=== PATIENT | female | born 1960 | race African-American/Black ===

== ENCOUNTER 2017-09-08 08:39 | Emergency (ER) | payer SELFPAY ==
[~2017-09-08] VITALS: Ht 152.4 cm; Wt 63.5 kg
[2017-09-08 08:51] VITALS: BP 170/94
[2017-09-08] MEDS ORDERED: methylPREDNISolone SOD SUCC 125 MG/2 ML VL IM ONE (10:00)
[2017-09-08] MEDS ORDERED: diphenhdrAMINE HCL 50 MG/1 ML VL IM ONE (10:00)
== END 2017-09-08 10:43 | disposition home or self-care (01) ==
LOC: ER 08:39
DX: L23.9 Allergic contact dermatitis, unspecified cause (principal); I10 Essential (primary) hypertension; Z88.1 Allergy status to other antibiotic agents
CPT/HCPCS: 96372; 99284; J1200; J2930

== ENCOUNTER 2019-02-21 17:38 | Inpatient (IN) | payer SELFPAY ==
[~2019-02-21] VITALS: Ht 152.4 cm; Wt 67.1 kg
[2019-02-21] MEDS ORDERED: SODIUM CHLORIDE 0.9% 500 ML IV ONE (19:44)
[2019-02-21] MEDS ORDERED: ALBUTEROL SULF 2.5 MG/0.5ML(0.5%) NEB SOLN HHN ONE (19:45)
[2019-02-21] MEDS ORDERED: IPRATROPIUM BROM 0.5 MG/2.5ML INH SOL HHN ONE (19:45)
[2019-02-21] MEDS ORDERED: LEVOFLOXACIN 500MG 100 ML IV ONE (19:45)
[2019-02-21 19:58] LABS: Basophils # (auto) 0.1 uL; Basophils % (auto) 0.5 % (0.0-2.0); Eosinophils # (auto) 0.1 uL; Eosinophils % (auto) 0.8 % (0.0-7.0); Hematocrit 44.2 % (36.0-46.0); Hemoglobin 14.8 g/dL (12.2-16.2); Lymphocytes # (auto) 1.7 uL; Lymphocytes % (auto) 13.5 % (10.0-50.0); Mean Corpuscular Hemoglobin 30.7 pg (28.0-32.0); Mean Corpuscular Hgb Conc. 33.6 g/dL (32.0-36.0); Mean Corpuscular Volume 91.4 fL (80.0-100.0); Monocytes # (auto) 1.1 uL; Monocytes % (auto) 8.2 % (0.0-12.0); Neutrophils # (auto) 9.9 uL; Platelet Count (auto) 236 10^3/uL (140-450); Red Blood Cells 4.84 10^6/uL (4.0-5.20); Red Cell Distribution Width 14.1 % (11.8-14.3); White Blood Cell 12.9 10^3/uL (4.4-10.8)
[2019-02-21 20:06] LABS: Calcium 9.2 mg/dL (8.5-10.1)
[2019-02-21 20:09] LABS: BUN/Creatinine Ratio 16.5
[2019-02-21] MEDS ORDERED: AZITHROMYCIN 500MG/ 250ML 250 ML IV ONE (20:15)
[2019-02-21 20:31] LABS: Potassium 2.7 mmol/L (3.5-5.1)
[2019-02-21] MEDS ORDERED: POTASSIUM CHL 20 Meq TABLET PO ONE (21:30)
[2019-02-21] MEDS: POTASSIUM CHL 20MEQ/100ML 100 ML IV SCH (23:52)
[2019-02-22] MEDS ORDERED: ONDANSETRON HCL 4 MG/2 ML VIAL IV PRN (00:30)
[2019-02-22] MEDS ORDERED: TEMAZEPAM 15 MG CAP PO PRN (00:30)
[2019-02-22] MEDS ORDERED: MORPHINE SULF INJ 2 MG/ML SYRINGE 1ML IV PRN (00:30)
[2019-02-22] MEDS ORDERED: NITROGLYCERIN 0.4 MG SL TAB SL PRN (00:30)
[2019-02-22] MEDS ORDERED: cloNIDine HCL 0.1 MG TAB PO PRN (00:30)
[2019-02-22] MEDS ORDERED: HYDROcodone-ACET 5/325MG TAB ONE (00:46)
[2019-02-22] MEDS: HYDROcodone-ACET 5/325MG TAB PO PRN ×2 (01:02→08:40)
[2019-02-22] MEDS: POTASSIUM CHL 20MEQ/100ML 100 ML IV SCH (01:51)
[2019-02-22 02:31] VITALS: BP 149/87
[2019-02-22] MEDS: ALBUTEROL SULF 2.5 MG/0.5ML(0.5%) NEB SOLN NEB PRN ×2 (04:49→15:43)
[2019-02-22] MEDS ORDERED: HCTZ25T PO (05:49)
[2019-02-22 06:05] VITALS: BP 162/102
--- NOTE | 2019-02-22 06:29 | NUR ---
Telemetry admit from ER EUGENIOCHARANJITSHEY admitted to Telemetry unit after SBAR received. Patient oriented to Hoang Oleary primary RN, unit, room 288, bed B, and unit policies regarding patient care and visiting hours. Patient now on continuous telemetry monitoring, tele box #[id number] and telemetry reading on arrival to unit is SR 88. Patient placed on bedside oxygen, weighed by bedscale and encouraged to call if they need something. All questions and concerns addressed, patient verbalized understanding.
--- NOTE | 2019-02-22 07:51 | NUR ---
LAB CALLED Phone call placed to lab to obtain potassium level as ordered.
[2019-02-22 08:00] VITALS: BP 157/70
--- NOTE | 2019-02-22 08:15 | NUR ---
RESPIRATORY SAMPLE SENT TO LAB.
[2019-02-22 08:44] VITALS: BP 155/70
--- NOTE | 2019-02-22 09:02 | NUR ---
OPENING NOTE Patient is in bed, with family at bedside. A/Ox4. C/O 7/10 throbbing headache. [place] 5/325 administered. N/C placed on pt at 4lpm. Patient informed of POC and medication schedule. Patient verbalizes understanding. Call light within reach, bed in low locked position.
[2019-02-22] MEDS ORDERED: LEVOFLOXACIN 500MG 100 ML IV SCH (10:00)
[2019-02-22] MEDS ORDERED: HCTZ 25 MG TAB PO SCH (10:00)
[2019-02-22] MEDS: FAMOTIDINE 20 MG TAB PO SCH ×2 (10:01→21:41)
--- NOTE | 2019-02-22 12:45 | NUR ---
Pt requesting nebulizer treatment. RT notified.
[2019-02-22 13:40] VITALS: BP 138/64
[2019-02-22 14:02] LABS: Magnesium 2.5 mg/dL (1.6-2.6); Phosphorus 3.7 mg/dL (2.5-4.90)
[2019-02-22] MEDS ORDERED: POTASSIUM CHL 20 Meq TABLET PO ONE (14:30)
--- NOTE | 2019-02-22 19:00 | NUR ---
PT ASSESSED, NO SOB NOTED. SAT 95% ON 2L NC, [place] TX NOT INDICATED AT THIS TIME
--- NOTE | 2019-02-22 20:00 | NUR ---
OPENING NOTE RECEIVED REPORT FROM DAYSHIFT RN. ASSUMING ROLE OF CARE OF PATIENT AT THIS TIME. PATIENT SHOWING NO SIGN OF DISTRESS, SHORTNESS OF BREATH, AND PATIENT DENIES ANY PAIN AT THIS TIME. PATIENT EDUCATED ON PLAN OF CARE FOR THE NIGHT AND PATIENT VERBALIZED UNDERSTANDING. PATIENT STATED REFUSAL OF PEPCID MEDICATION AT 2200. PATIENT STATED THAT THEY DO NOT NEED IT. WILL ASK AGAIN AT 2200 IN CASE OF CHANGE. BED LOWERED, CALL LIGHT WITHIN REACH, AND PATIENT WILL BE ROUNDED ON EVERY HOUR AND NEEDED.
[2019-02-22 22:00] VITALS: BP 154/74
--- NOTE | 2019-02-22 22:00 | NUR ---
IV removal IV at right AC DC'd with clean sterile technique, catheter fully intact. Pressure dressing applied to site. Patient tolerated well.
[2019-02-23 04:50] LABS: Basophils # (auto) 0.1 uL; Basophils % (auto) 0.7 % (0.0-2.0); Eosinophils # (auto) 0.1 uL; Eosinophils % (auto) 1.4 % (0.0-7.0); Hematocrit 44.4 % (36.0-46.0); Hemoglobin 14.9 g/dL (12.2-16.2); Lymphocytes # (auto) 2.5 uL; Lymphocytes % (auto) 29.5 % (10.0-50.0); Mean Corpuscular Hemoglobin 30.6 pg (28.0-32.0); Mean Corpuscular Hgb Conc. 33.5 g/dL (32.0-36.0); Mean Corpuscular Volume 91.4 fL (80.0-100.0); Monocytes % (auto) 12.2 % (0.0-12.0); Neutrophils # (auto) 4.8 uL; Neutrophils % (auto) 56.2 % (37.0-80.0); Platelet Count (auto) 221 10^3/uL (140-450); Red Blood Cells 4.86 10^6/uL (4.0-5.20); Red Cell Distribution Width 14.4 % (11.8-14.3); White Blood Cell 8.5 10^3/uL (4.4-10.8)
[2019-02-23 05:00] VITALS: BP 153/77
[2019-02-23 05:09] LABS: Potassium 3.5 mmol/L (3.5-5.1)
[2019-02-23 05:11] LABS: BUN/Creatinine Ratio 13.1
[2019-02-23] MEDS: ACETAMINOPHEN 325 MG TAB PO PRN ×2 (06:33→21:23)
[2019-02-23 08:17] VITALS: BP 142/79
[2019-02-23] MEDS: POTASSIUM CHL 20 Meq TABLET PO SCH (09:21)
[2019-02-23] MEDS: amLODIPine BESYLATE 5 MG TAB PO SCH (09:22)
[2019-02-23] MEDS: FAMOTIDINE 20 MG TAB PO SCH ×3 (09:22→21:29)
[2019-02-23] MEDS: ALBUTEROL SULF 2.5 MG/0.5ML(0.5%) NEB SOLN NEB PRN ×2 (09:42→19:55)
--- NOTE | 2019-02-23 09:50 | NUR ---
Respiratory note: PATIENT SEEN FOR PRN TX. SHE WAS COMPLAINING OF SOB AND WHEEZING. PRN TX ADMINISTERED AT THIS TIME PATIENT WAS HAVING EXPIRATORY WHEEZES IN THE LOWER LOBES. SPO2: 94% R/A LUNG SOUNDS: DIM T/O, EXP WHEEZES IN LLL
[2019-02-23] MEDS ORDERED: amLODIPine BESYLATE 5 MG TAB PO SCH (10:00)
--- NOTE | 2019-02-23 10:40 | NUR ---
PT SEEN BY DR. SALMON PER DR. SALMON SHE WILL KEEP THE PATIENT 1 MORE DAY
[2019-02-23] MEDS ORDERED: FEXOFENADINE HCL 60 MG TAB PO ONE (10:45)
[2019-02-23 12:22] VITALS: BP 148/75
[2019-02-23 16:41] VITALS: BP 127/74
--- NOTE | 2019-02-23 19:28 | NUR ---
Opening Shift Note Assumed care of patient, awake and alert x 4. No S/S of distress/SOB or pain. bed is in lowest position and locked. Call light within reach. Board updated. Instructed on POC and to call for assist PRN, will continue to monitor for changes Q1hr and PRN.
[2019-02-23] MEDS: FEXOFENADINE HCL 60 MG TAB PO SCH (21:23)
[2019-02-23 21:54] VITALS: BP 132/71
[2019-02-24 04:55] VITALS: BP 133/74
--- NOTE | 2019-02-24 07:30 | NUR ---
OPENING NOTE ASSUMED CARE OF PT. PT IS LAYING ON BED, HOB SEMI-FOWLERS. A&O X4. ON 2 LPM/NC, O2 SATURATION 100%. NO SIGNS OF SOB/DISTRESS NOTED. SAFETY PRECAUTIONS IN PLACE INCLUDING BED SET TO LOWEST POSITION/LOCKED. BEDSIDE RAILS UP X2. CALL LIGHT WITHIN REACH. INSTRUCTED PT TO CALL FOR ASSISTANCE. DISCUSSED POC WITH PT. PT VERBALIZED UNDERSTANDING. WILL CONTINUE TO MONITOR Q 1HR AND PRN.
[2019-02-24 07:55] VITALS: BP 135/79
[2019-02-24] MEDS: FEXOFENADINE HCL 60 MG TAB PO SCH (09:00)
[2019-02-24] MEDS: POTASSIUM CHL 20 Meq TABLET PO SCH (09:00)
[2019-02-24] MEDS: amLODIPine BESYLATE 5 MG TAB PO SCH (09:02)
[2019-02-24] MEDS ORDERED: POTASSIUM CHL 20 Meq TABLET PO ONE (09:45)
[2019-02-24] MEDS: FAMOTIDINE 20 MG TAB PO SCH (10:00)
--- NOTE | 2019-02-24 10:06 | NUR ---
RT note: Check for PRN TX. PT getting ready to go home. No sob/resp.distress noted at this time. Room air sats=96%, HR 76, RR 14
[2019-02-24] MEDS ORDERED: AML5T PO (11:00)
[2019-02-24] MEDS ORDERED: FEXO-38 PO (11:00)
[2019-02-24 11:32] VITALS: BP 135/79
--- NOTE | 2019-02-24 12:05 | NUR ---
Discharge instructions given as ordered. Encourage to follow up with [facility] Urgent [facility]. All questions and concerns addressed. Patient verbalized understanding. No home medications held in Pharmacy and no vaccines given. IV removed with catheter intact, pressure dressing applied.
--- NOTE | 2019-02-24 12:18 | NUR ---
Patient taken to vehicle via wheelchair with all personal belongings, accompanied by staff and family member. No distress noted at time of departure.
== END 2019-02-24 12:18 | disposition home or self-care (01) | DRG 203 ==
LOC: ER 17:38 → TELE 02-22 00:34 → TELE-WESTW 02-22 05:27 → WEST WING 02-23 11:09
PROVIDERS: ADMIT Nurse Practitioner; ATTEND Internal Medicine
DX: J45.909 Unspecified asthma, uncomplicated (principal); E66.9 Obesity, unspecified; E87.6 Hypokalemia; F17.210 Nicotine dependence, cigarettes, uncomplicated; I10 Essential (primary) hypertension; T50.2X5A Adverse effect of carbonic-anhydrase inhibitors, benzothiadiazides and other diuretics, initial encounter; Z79.899 Other long term (current) drug therapy; Y92.89 Other specified places as the place of occurrence of the external cause; Z88.1 Allergy status to other antibiotic agents; Z68.28 Body mass index [BMI] 28.0-28.9, adult
CPT/HCPCS: 36415; 71046; 80048; 83735; 83880; 84100; 84132; 84484; 85025; 87040; 87070; 87205; 87804; 93005; 94640; 94761; 96361; 96365; G0378; J1956; J3480